=== PATIENT | female | born 1960 | race Caucasian/White ===

== ENCOUNTER 2017-07-28 10:29 | Emergency (ER) | payer OTHER ==
[2017-07-28 15:54] LABS: ADD MAN DIFF? NO
[2017-07-28 15:59] LABS: WHITE BLOOD COUNT 6.7 10^3/ul (4.8-10.8)
[2017-07-28 15:59] LABS: BASOPHIL # 0.1 10^3/ul (0.0-0.1); BASOPHILS % 0.9 % (0.0-2.0); EOSINOPHILS # 0.2 10^3/ul (0.0-0.5); EOSINOPHILS % 2.2 % (0.0-7.0); HEMATOCRIT 28.6 % (37.0-47.0); HEMOGLOBIN 9.5 g/dl (12.0-16.0); LYMPHOCYTES # 2.2 10^3/ul (0.8-2.9); LYMPHOCYTES % 33.1 % (15.0-51.0); MEAN CORPUSCULAR HEMOGLOBIN 31.4 pg (29.0-33.0); MEAN CORPUSCULAR HGB CONC 33.2 g/dl (32.0-37.0); MEAN CORPUSCULAR VOLUME 94.4 fl (82.0-101.0); MEAN PLATELET VOLUME 9.3 fl (7.4-10.4); MONOCYTE # 0.5 10^3/ul (0.3-0.9); MONOCYTES % 7.6 % (0.0-11.0); NEUTROPHIL # 3.7 10^3/ul (1.6-7.5); NEUTROPHILS % 55.9 % (39.0-77.0); PLATELET COUNT 178 10^3/UL (140-415); RED BLOOD COUNT 3.03 10^6/ul (4.20-5.40); RED CELL DISTRIBUTION WIDTH 18.1 % (11.5-14.5)
[2017-07-28 16:12] LABS: INR 1.57; PROTIME 19.1 Sec (11.9-14.9); PT RATIO 1.5
[2017-07-28 16:14] LABS: ALANINE AMINOTRANSFERASE 30 IU/L (13-69); ALBUMIN 3.6 g/dl (3.3-4.9); ALBUMIN/GLOBULIN RATIO 0.64; ALKALINE PHOSPHATASE 99 IU/L (42-121); ANION GAP 13 (8-16); ASPARTATE AMINO TRANSFERASE 64 IU/L (15-46); BILIRUBIN,TOTAL 2.1 mg/dl (0.2-1.3); BLOOD UREA NITROGEN 4 mg/dl (7-20); CALCIUM 9.3 mg/dl (8.4-10.2); CARBON DIOXIDE 25 mmol/L (21-31); CHLORIDE 100 mmol/L (97-110); CREATININE 0.65 mg/dl (0.44-1.00); GLUCOSE 94 mg/dl (70-220); POTASSIUM 3.3 mmol/L (3.5-5.1); SODIUM 135 mmol/L (135-144); TOTAL PROTEIN 9.2 g/dl (6.1-8.1)
== END 2017-07-28 16:49 | disposition home or self-care (01) ==
LOC: E/R 10:29
DX: D64.9 Anemia, unspecified (principal); F17.210 Nicotine dependence, cigarettes, uncomplicated; R40.2252 Coma scale, best verbal response, oriented, at arrival to emergency department; R40.2142 Coma scale, eyes open, spontaneous, at arrival to emergency department; R40.2362 Coma scale, best motor response, obeys commands, at arrival to emergency department; R07.9 Chest pain, unspecified
CPT/HCPCS: 80053; 85025; 85610; 85730; 86850; 86900; 86901; 99283

== ENCOUNTER 2017-11-19 02:38 | Inpatient (IN) | payer OTHER ==
[2017-11-19] MEDS: LIDOCAINE/MYLANTA 40 ML BTL PO (03:30)
[2017-11-19] MEDS: SOD CHLORIDE 0.9% 1,000 ML IV ×2 (03:31→07:16)
[2017-11-19] MEDS: ONDANSETRON 4 MG INJ IV ×2 (03:31→19:49)
[2017-11-19 03:33] LABS: ADD MAN DIFF? NO; BASOPHIL # 0.1 10^3/ul (0.0-0.1); BASOPHILS % 0.7 % (0.0-2.0); EOSINOPHILS % 0.1 % (0.0-7.0); HEMATOCRIT 35.5 % (37.0-47.0); HEMOGLOBIN 12.3 g/dl (12.0-16.0); LYMPHOCYTES # 0.7 10^3/ul (0.8-2.9); MEAN CORPUSCULAR HEMOGLOBIN 34.3 pg (29.0-33.0); MEAN CORPUSCULAR HGB CONC 34.6 g/dl (32.0-37.0); MEAN CORPUSCULAR VOLUME 98.9 fl (82.0-101.0); MEAN PLATELET VOLUME 8.8 fl (7.4-10.4); MONOCYTE # 0.9 10^3/ul (0.3-0.9); NEUTROPHIL # 7.9 10^3/ul (1.6-7.5); NEUTROPHILS % 82.5 % (39.0-77.0); PLATELET COUNT 122 10^3/UL (140-415); RED BLOOD COUNT 3.59 10^6/ul (4.20-5.40); RED CELL DISTRIBUTION WIDTH 15.2 % (11.5-14.5)
[2017-11-19 03:33] LABS: WHITE BLOOD COUNT 9.6 10^3/ul (4.8-10.8)
[2017-11-19] MEDS: KETOROLAC 30 MG INJ IV (03:51)
[2017-11-19 03:59] LABS: ALANINE AMINOTRANSFERASE 26 IU/L (13-69); ALBUMIN 4.2 g/dl (3.3-4.9); ALBUMIN/GLOBULIN RATIO 0.85; ALKALINE PHOSPHATASE 138 IU/L (42-121); ANION GAP 26 (8-16); ASPARTATE AMINO TRANSFERASE 101 IU/L (15-46); BILIRUBIN,INDIRECT 2.1 mg/dl (0-1.1); BILIRUBIN,TOTAL 3.2 mg/dl (0.2-1.3); BLOOD UREA NITROGEN 6 mg/dl (7-20); CALCIUM 9.5 mg/dl (8.4-10.2); CARBON DIOXIDE 18 mmol/L (21-31); CHLORIDE 95 mmol/L (97-110); CREATININE 0.69 mg/dl (0.44-1.00); GLUCOSE 200 mg/dl (70-220); LIPASE 150 U/L (23-300); POTASSIUM 3.1 mmol/L (3.5-5.1); SODIUM 136 mmol/L (135-144); TOTAL PROTEIN 9.1 g/dl (6.1-8.1)
[2017-11-19 04:11] LABS: ADD UMIC NO; TROPONIN-I < 0.012 ng/ml (0.00-0.12); UR ASCORBIC ACID NEGATIVE (NEGATIVE); UR BILIRUBIN (Dip) NEGATIVE (NEGATIVE); UR BLOOD (Dip) NEGATIVE (NEGATIVE); UR CLARITY CLEAR (CLEAR); UR COLOR YELLOW (YELLOW); UR GLUCOSE (Dip) NEGATIVE (NEGATIVE); UR KETONES (Dip) TRACE mg/dL (NEGATIVE); UR LEUKOCYTE ESTERASE (Dip) NEGATIVE Leu/ul (NEGATIVE); UR NITRITE (Dip) NEGATIVE (NEGATIVE); UR SPECIFIC GRAVITY (Dip) 1.011 (1.003-1.030); UR TOTAL PROTEIN (Dip) NEGATIVE (NEGATIVE); UR UROBILINOGEN (Dip) 2+ mg/dL (NEGATIVE)
[2017-11-19] MEDS: POTASSIUM CHLORIDE (SR) 20 MEQ TAB PO (04:50)
[2017-11-19] MEDS: CEFTRIAXONE 1 GM/50 ML (PMX) 50 ML IVPB (07:16)
[2017-11-19] MEDS: metroNIDAZOLE 500 MG/NS (PMX) 100 ML IVPB (07:17)
[2017-11-19] MEDS ORDERED: ALBUTEROL/IPRATROPIUM (NEB) 3 ML AMP HHN (08:00)
[2017-11-19] MEDS ORDERED: NACL 0.9% 3 ML SYG IV (08:00)
[2017-11-19] MEDS: DEXTROSE 5%-0.45% NACL 1,000 ML IV ×2 (14:10→22:48)
[2017-11-19] MEDS: morphine 4 MG/ML VIAL IV (21:31)
[2017-11-20] MEDS: DEXTROSE 5%-0.45% NACL 1,000 ML IV ×2 (06:00→12:15)
[2017-11-20 06:04] LABS: ADD MAN DIFF? NO
[2017-11-20] MEDS: ONDANSETRON 4 MG INJ IV ×3 (06:08→20:59)
[2017-11-20] MEDS: morphine 4 MG/ML VIAL IV ×3 (06:08→20:59)
[2017-11-20 06:10] LABS: WHITE BLOOD COUNT 6.6 10^3/ul (4.8-10.8)
[2017-11-20 06:10] LABS: BASOPHIL # 0.1 10^3/ul (0.0-0.1); BASOPHILS % 1.1 % (0.0-2.0); EOSINOPHILS # 0.2 10^3/ul (0.0-0.5); EOSINOPHILS % 3.2 % (0.0-7.0); HEMATOCRIT 31.6 % (37.0-47.0); HEMOGLOBIN 10.5 g/dl (12.0-16.0); LYMPHOCYTES % 14.4 % (15.0-51.0); MEAN CORPUSCULAR HEMOGLOBIN 34.3 pg (29.0-33.0); MEAN CORPUSCULAR HGB CONC 33.2 g/dl (32.0-37.0); MEAN CORPUSCULAR VOLUME 103.3 fl (82.0-101.0); MEAN PLATELET VOLUME 9.7 fl (7.4-10.4); MONOCYTE # 0.6 10^3/ul (0.3-0.9); MONOCYTES % 9.4 % (0.0-11.0); NEUTROPHIL # 4.7 10^3/ul (1.6-7.5); NEUTROPHILS % 71.6 % (39.0-77.0); PLATELET COUNT 101 10^3/UL (140-415); RED BLOOD COUNT 3.06 10^6/ul (4.20-5.40); RED CELL DISTRIBUTION WIDTH 15.8 % (11.5-14.5)
[2017-11-20 06:22] LABS: PROTIME 20.3 Sec (11.9-14.9); PT RATIO 1.6
[2017-11-20] MEDS: MONTELUKAST 10 MG TAB PO ×2 (06:31→20:59)
[2017-11-20] MEDS: PANTOPRAZOLE (EC) 40 MG TAB PO (06:31)
[2017-11-20] MEDS: POTASSIUM CHLORIDE (SR) 20 MEQ TAB PO (06:31)
[2017-11-20] MEDS: PHYTONADIONE 10 MG/ML INJ IM (06:32)
[2017-11-20 07:03] LABS: ALANINE AMINOTRANSFERASE 33 IU/L (13-69); ALBUMIN 3.3 g/dl (3.3-4.9); ALBUMIN/GLOBULIN RATIO 0.73; ALKALINE PHOSPHATASE 116 IU/L (42-121); ANION GAP 12 (8-16); ASPARTATE AMINO TRANSFERASE 125 IU/L (15-46); BILIRUBIN,INDIRECT 3.6 mg/dl (0-1.1); BILIRUBIN,TOTAL 7.4 mg/dl (0.2-1.3); BLOOD UREA NITROGEN 8 mg/dl (7-20); CARBON DIOXIDE 29 mmol/L (21-31); CHLORIDE 99 mmol/L (97-110); GLUCOSE 107 mg/dl (70-220); POTASSIUM 4.4 mmol/L (3.5-5.1); SODIUM 136 mmol/L (135-144); TOTAL PROTEIN 7.8 g/dl (6.1-8.1)
[2017-11-20] MEDS: ACCU-CHEK XX ×6 (07:20→21:00)
[2017-11-20] MEDS: PHYTONADIONE 10 MG in DEXTROSE 5% 50 ML IVPB (08:35)
[2017-11-20] MEDS: LEVOTHYROXINE 50 MCG TAB PO (08:35)
[2017-11-20] MEDS: CYANOCOBALAMIN 1000 MCG INJ IM (08:36)
[2017-11-20] MEDS: ESCITALOPRAM 10 MG TAB PO (08:36)
[2017-11-20] MEDS: THIAMINE 200 MG INJ IM (08:36)
[2017-11-20] MEDS: LEVETIRACETAM 250 MG TAB PO ×2 (08:36→20:52)
[2017-11-20] MEDS: THIAMINE 100 MG TAB PO (08:37)
[2017-11-20] MEDS: SALMETEROL/FLUTICASONE 250/50 INHA INH ×2 (08:37→20:51)
[2017-11-20 09:01] LABS: HEPATITIS B SURFACE ANTIGEN NEGATIVE (NEGATIVE)
[2017-11-20 09:17] LABS: HEPATITIS C VIRAL ANTIBODY NEGATIVE (NEGATIVE)
[2017-11-20 09:18] LABS: HEPATITIS B SURFACE ANTIBODY POSITIVE (NEGATIVE)
[2017-11-20] MEDS: RANITIDINE 150 MG TAB PO (20:58)
[2017-11-20] MEDS ORDERED: MONTELUKAST 10 MG TAB PO (21:00)
[2017-11-21] MEDS: DEXTROSE 5%-0.45% NACL 1,000 ML IV ×3 (01:58→22:00)
[2017-11-21 05:17] LABS: ADD MAN DIFF? NO
[2017-11-21 05:29] LABS: WHITE BLOOD COUNT 10.3 10^3/ul (4.8-10.8)
[2017-11-21 05:29] LABS: BASOPHIL # 0.1 10^3/ul (0.0-0.1); BASOPHILS % 0.8 % (0.0-2.0); EOSINOPHILS # 0.3 10^3/ul (0.0-0.5); HEMATOCRIT 29.8 % (37.0-47.0); HEMOGLOBIN 9.7 g/dl (12.0-16.0); LYMPHOCYTES # 1.4 10^3/ul (0.8-2.9); LYMPHOCYTES % 13.7 % (15.0-51.0); MEAN CORPUSCULAR HEMOGLOBIN 33.8 pg (29.0-33.0); MEAN CORPUSCULAR HGB CONC 32.6 g/dl (32.0-37.0); MEAN CORPUSCULAR VOLUME 103.8 fl (82.0-101.0); MEAN PLATELET VOLUME 9.9 fl (7.4-10.4); MONOCYTE # 0.9 10^3/ul (0.3-0.9); NEUTROPHIL # 7.5 10^3/ul (1.6-7.5); PLATELET COUNT 103 10^3/UL (140-415); RED BLOOD COUNT 2.87 10^6/ul (4.20-5.40); RED CELL DISTRIBUTION WIDTH 15.3 % (11.5-14.5)
[2017-11-21] MEDS: PANTOPRAZOLE (EC) 40 MG TAB PO (05:43)
[2017-11-21] MEDS: LEVOTHYROXINE 50 MCG TAB PO (05:44)
[2017-11-21 05:48] LABS: INR 1.99; PROTIME 23.1 Sec (11.9-14.9); PT RATIO 1.8
[2017-11-21 05:49] LABS: PARTIAL THROMBOPLASTIN TIME 46.8 Sec (25.0-35.0)
[2017-11-21 06:07] LABS: ALANINE AMINOTRANSFERASE 33 IU/L (13-69); ALBUMIN/GLOBULIN RATIO 0.68; ALKALINE PHOSPHATASE 109 IU/L (42-121); ANION GAP 12 (8-16); ASPARTATE AMINO TRANSFERASE 90 IU/L (15-46); BILIRUBIN,INDIRECT 3.7 mg/dl (0-1.1); BILIRUBIN,TOTAL 9.5 mg/dl (0.2-1.3); BLOOD UREA NITROGEN 8 mg/dl (7-20); CALCIUM 8.6 mg/dl (8.4-10.2); CARBON DIOXIDE 25 mmol/L (21-31); CHLORIDE 99 mmol/L (97-110); CREATININE 0.73 mg/dl (0.44-1.00); GLUCOSE 111 mg/dl (70-220); POTASSIUM 4.2 mmol/L (3.5-5.1); SODIUM 132 mmol/L (135-144); TOTAL PROTEIN 7.4 g/dl (6.1-8.1)
[2017-11-21] MEDS: morphine 4 MG/ML VIAL IV ×3 (06:51→18:22)
[2017-11-21] MEDS ORDERED: HEPATITIS A VACC 25 UNITS/0.5ML INJ IM* (08:00)
[2017-11-21] MEDS: ONDANSETRON 4 MG INJ IV ×2 (09:48→22:07)
[2017-11-21] MEDS: LEVETIRACETAM 250 MG TAB PO ×2 (10:19→20:54)
[2017-11-21] MEDS: THIAMINE 100 MG TAB PO (10:19)
[2017-11-21] MEDS: ESCITALOPRAM 10 MG TAB PO (10:19)
[2017-11-21] MEDS: PHYTONADIONE 10 MG/ML INJ SC (10:20)
[2017-11-21] MEDS: SALMETEROL/FLUTICASONE 250/50 INHA INH ×2 (10:21→20:54)
[2017-11-21] MEDS: PIPER-TAZO 3.375 GM IV (PMX) 100 ML IVPB ×2 (14:24→22:08)
[2017-11-21] MEDS: RANITIDINE 150 MG TAB PO (20:54)
[2017-11-21] MEDS: MONTELUKAST 10 MG TAB PO (20:54)
[2017-11-22] MEDS: DEXTROSE 5%-0.45% NACL 1,000 ML IV ×2 (01:39→11:48)
[2017-11-22] MEDS: ONDANSETRON 4 MG INJ IV ×3 (04:41→22:33)
[2017-11-22 05:35] LABS: ADD MAN DIFF? NO
[2017-11-22 05:40] LABS: BASOPHIL # 0.1 10^3/ul (0.0-0.1); BASOPHILS % 0.8 % (0.0-2.0); EOSINOPHILS # 0.3 10^3/ul (0.0-0.5); LYMPHOCYTES # 1.2 10^3/ul (0.8-2.9); LYMPHOCYTES % 13.3 % (15.0-51.0); MEAN CORPUSCULAR HEMOGLOBIN 34.2 pg (29.0-33.0); MEAN CORPUSCULAR HGB CONC 33.3 g/dl (32.0-37.0); MEAN CORPUSCULAR VOLUME 102.7 fl (82.0-101.0); MEAN PLATELET VOLUME 9.7 fl (7.4-10.4); MONOCYTE # 0.9 10^3/ul (0.3-0.9); MONOCYTES % 9.3 % (0.0-11.0); NEUTROPHIL # 6.8 10^3/ul (1.6-7.5); NEUTROPHILS % 73.1 % (39.0-77.0); PLATELET COUNT 106 10^3/UL (140-415); RED BLOOD COUNT 2.92 10^6/ul (4.20-5.40); RED CELL DISTRIBUTION WIDTH 15.1 % (11.5-14.5)
[2017-11-22 05:40] LABS: WHITE BLOOD COUNT 9.2 10^3/ul (4.8-10.8)
[2017-11-22 05:54] LABS: INR 2.03; PROTIME 23.4 Sec (11.9-14.9); PT RATIO 1.8
[2017-11-22 05:55] LABS: PARTIAL THROMBOPLASTIN TIME 47.9 Sec (25.0-35.0)
[2017-11-22 05:58] LABS: ALANINE AMINOTRANSFERASE 23 IU/L (13-69); ALBUMIN 3.1 g/dl (3.3-4.9); ALBUMIN/GLOBULIN RATIO 0.72; ALKALINE PHOSPHATASE 109 IU/L (42-121); ANION GAP 13 (8-16); ASPARTATE AMINO TRANSFERASE 68 IU/L (15-46); BILIRUBIN,INDIRECT 3.8 mg/dl (0-1.1); BILIRUBIN,TOTAL 12.6 mg/dl (0.2-1.3); BLOOD UREA NITROGEN 6 mg/dl (7-20); CALCIUM 8.7 mg/dl (8.4-10.2); CARBON DIOXIDE 24 mmol/L (21-31); CHLORIDE 98 mmol/L (97-110); CREATININE 0.72 mg/dl (0.44-1.00); GLUCOSE 130 mg/dl (70-220); POTASSIUM 3.8 mmol/L (3.5-5.1); SODIUM 131 mmol/L (135-144); TOTAL PROTEIN 7.4 g/dl (6.1-8.1)
[2017-11-22] MEDS: PIPER-TAZO 3.375 GM IV (PMX) 100 ML IVPB (06:06)
[2017-11-22] MEDS: PANTOPRAZOLE (EC) 40 MG TAB PO (06:06)
[2017-11-22] MEDS: LEVOTHYROXINE 50 MCG TAB PO (06:06)
[2017-11-22] MEDS: SALMETEROL/FLUTICASONE 250/50 INHA INH ×2 (08:11→20:55)
[2017-11-22] MEDS: LEVETIRACETAM 250 MG TAB PO ×2 (08:11→20:54)
[2017-11-22] MEDS: THIAMINE 100 MG TAB PO (08:12)
[2017-11-22] MEDS: ESCITALOPRAM 10 MG TAB PO (08:12)
[2017-11-22] MEDS: morphine 4 MG/ML VIAL IV ×3 (08:20→20:56)
[2017-11-22] MEDS ORDERED: predniSOLONE (3 MG/ML) CUP PO (13:30)
[2017-11-22] MEDS ORDERED: predniSOLONE (3 MG/ML PO SYG) PO (15:00)
[2017-11-22] MEDS: predniSOLONE (3 MG/ML) CUP PO (16:13)
[2017-11-22] MEDS: RANITIDINE 150 MG TAB PO (20:54)
[2017-11-22] MEDS: MONTELUKAST 10 MG TAB PO (20:54)
[2017-11-22] MEDS: PENTOXIFYLLINE (SR) 400 MG TAB PO (20:54)
[2017-11-22] MEDS: PHYTONADIONE 10 MG/ML INJ IM (20:56)
[2017-11-23] MEDS ORDERED: VANCOMYCIN IV PER PHARMACY XX (00:30)
[2017-11-23] MEDS: VANCOMYCIN 1.25 GM in SOD CHLORIDE 0.9% 250 ML IVPB (03:12)
[2017-11-23] MEDS: morphine 4 MG/ML VIAL IV ×5 (03:33→21:09)
[2017-11-23 05:47] LABS: ADD MAN DIFF? NO
[2017-11-23 05:48] LABS: WHITE BLOOD COUNT 5.7 10^3/ul (4.8-10.8)
[2017-11-23 05:48] LABS: ABNORMAL IP MESSAGE 1; BASOPHILS % 0.3 % (0.0-2.0); EOSINOPHILS % 0.2 % (0.0-7.0); HEMOGLOBIN 9.5 g/dl (12.0-16.0); LYMPHOCYTES # 0.5 10^3/ul (0.8-2.9); LYMPHOCYTES % 8.9 % (15.0-51.0); MEAN CORPUSCULAR HEMOGLOBIN 34.4 pg (29.0-33.0); MEAN CORPUSCULAR HGB CONC 33.9 g/dl (32.0-37.0); MEAN CORPUSCULAR VOLUME 101.4 fl (82.0-101.0); MEAN PLATELET VOLUME 10.1 fl (7.4-10.4); MONOCYTE # 0.4 10^3/ul (0.3-0.9); MONOCYTES % 6.4 % (0.0-11.0); NEUTROPHIL # 4.8 10^3/ul (1.6-7.5); NEUTROPHILS % 83.7 % (39.0-77.0); PLATELET COUNT 102 10^3/UL (140-415); RED BLOOD COUNT 2.76 10^6/ul (4.20-5.40); RED CELL DISTRIBUTION WIDTH 15.2 % (11.5-14.5)
[2017-11-23 05:54] LABS: POSITIVE DIFF @See below
[2017-11-23] MEDS: LEVOTHYROXINE 50 MCG TAB PO (06:07)
[2017-11-23] MEDS: PANTOPRAZOLE (EC) 40 MG TAB PO (06:07)
[2017-11-23 06:13] LABS: INR 2.14; PROTIME 24.4 Sec (11.9-14.9); PT RATIO 1.9
[2017-11-23 06:18] LABS: ALANINE AMINOTRANSFERASE 23 IU/L (13-69); ALBUMIN 2.9 g/dl (3.3-4.9); ALBUMIN/GLOBULIN RATIO 0.65; ALKALINE PHOSPHATASE 107 IU/L (42-121); ANION GAP 15 (8-16); ASPARTATE AMINO TRANSFERASE 49 IU/L (15-46); BILIRUBIN,INDIRECT 3.1 mg/dl (0-1.1); BILIRUBIN,TOTAL 11.3 mg/dl (0.2-1.3); BLOOD UREA NITROGEN 7 mg/dl (7-20); CALCIUM 8.5 mg/dl (8.4-10.2); CARBON DIOXIDE 23 mmol/L (21-31); CHLORIDE 97 mmol/L (97-110); CREATININE 0.57 mg/dl (0.44-1.00); GLUCOSE 149 mg/dl (70-220); POTASSIUM 3.9 mmol/L (3.5-5.1); SODIUM 131 mmol/L (135-144); TOTAL PROTEIN 7.3 g/dl (6.1-8.1)
[2017-11-23] MEDS: ONDANSETRON 4 MG INJ IV ×3 (07:30→21:09)
[2017-11-23] MEDS: LEVETIRACETAM 250 MG TAB PO ×2 (08:03→21:07)
[2017-11-23] MEDS: PENTOXIFYLLINE (SR) 400 MG TAB PO ×2 (08:03→12:39)
[2017-11-23] MEDS: ESCITALOPRAM 10 MG TAB PO (08:03)
[2017-11-23] MEDS: THIAMINE 100 MG TAB PO (08:03)
[2017-11-23] MEDS: SALMETEROL/FLUTICASONE 250/50 INHA INH ×2 (08:03→21:07)
[2017-11-23] MEDS: predniSOLONE (3 MG/ML) CUP PO (08:04)
[2017-11-23] MEDS: HEPATITIS A VACC 25 UNITS/0.5ML INJ IM* (12:04)
[2017-11-23] MEDS ORDERED: VANCOMYCIN 750 MG in DEXTROSE 5% 150 ML IVPB (15:00)
[2017-11-23] MEDS: RANITIDINE 150 MG TAB PO (21:07)
[2017-11-23] MEDS: MONTELUKAST 10 MG TAB PO (21:07)
[2017-11-24] MEDS: morphine 4 MG/ML VIAL IV ×3 (01:46→11:27)
[2017-11-24 05:06] LABS: ADD MAN DIFF? NO
[2017-11-24 05:16] LABS: WHITE BLOOD COUNT 7.8 10^3/ul (4.8-10.8)
[2017-11-24 05:16] LABS: BASOPHILS % 0.1 % (0.0-2.0); EOSINOPHILS % 0.4 % (0.0-7.0); HEMATOCRIT 26.3 % (37.0-47.0); HEMOGLOBIN 9.1 g/dl (12.0-16.0); LYMPHOCYTES # 1.1 10^3/ul (0.8-2.9); LYMPHOCYTES % 14.7 % (15.0-51.0); MEAN CORPUSCULAR HEMOGLOBIN 34.5 pg (29.0-33.0); MEAN CORPUSCULAR HGB CONC 34.6 g/dl (32.0-37.0); MEAN CORPUSCULAR VOLUME 99.6 fl (82.0-101.0); MEAN PLATELET VOLUME 10.2 fl (7.4-10.4); MONOCYTE # 0.7 10^3/ul (0.3-0.9); MONOCYTES % 9.5 % (0.0-11.0); NEUTROPHIL # 5.8 10^3/ul (1.6-7.5); NEUTROPHILS % 74.7 % (39.0-77.0); PLATELET COUNT 123 10^3/UL (140-415); RED BLOOD COUNT 2.64 10^6/ul (4.20-5.40); RED CELL DISTRIBUTION WIDTH 15.1 % (11.5-14.5)
[2017-11-24 05:30] LABS: ALANINE AMINOTRANSFERASE 29 IU/L (13-69); ALBUMIN 2.9 g/dl (3.3-4.9); ALBUMIN/GLOBULIN RATIO 0.67; ALKALINE PHOSPHATASE 108 IU/L (42-121); ANION GAP 10 (8-16); ASPARTATE AMINO TRANSFERASE 51 IU/L (15-46); BILIRUBIN,INDIRECT 2.8 mg/dl (0-1.1); BILIRUBIN,TOTAL 8.1 mg/dl (0.2-1.3); BLOOD UREA NITROGEN 13 mg/dl (7-20); CALCIUM 9.2 mg/dl (8.4-10.2); CARBON DIOXIDE 28 mmol/L (21-31); CHLORIDE 96 mmol/L (97-110); CREATININE 0.71 mg/dl (0.44-1.00); GLUCOSE 112 mg/dl (70-220); POTASSIUM 4.2 mmol/L (3.5-5.1); SODIUM 130 mmol/L (135-144); TOTAL PROTEIN 7.2 g/dl (6.1-8.1)
[2017-11-24 05:35] LABS: INR 1.98; PT RATIO 1.8
[2017-11-24] MEDS: PANTOPRAZOLE (EC) 40 MG TAB PO (05:47)
[2017-11-24] MEDS: LEVOTHYROXINE 50 MCG TAB PO (05:47)
[2017-11-24] MEDS: SALMETEROL/FLUTICASONE 250/50 INHA INH ×2 (08:41→21:01)
[2017-11-24] MEDS: ESCITALOPRAM 10 MG TAB PO (08:42)
[2017-11-24] MEDS: FUROSEMIDE 20 MG TAB PO (08:42)
[2017-11-24] MEDS: LEVETIRACETAM 250 MG TAB PO ×2 (08:43→21:01)
[2017-11-24] MEDS: THIAMINE 100 MG TAB PO (08:43)
[2017-11-24] MEDS: predniSOLONE (3 MG/ML) CUP PO (08:44)
[2017-11-24 11:11] LABS: MITOCHONDRIAL TB NEGATIVE (NEGATIVE); SMOOTH MUSCLE AB SCREEN NEGATIVE (NEGATIVE)
[2017-11-24] MEDS: ONDANSETRON 4 MG INJ IV ×2 (11:27→21:03)
[2017-11-24 14:11] LABS: ANA SCREEN NEGATIVE (NEGATIVE)
[2017-11-24] MEDS: morphine LIQ (10 MG/5 ML) CUP PO ×2 (16:03→21:36)
[2017-11-24] MEDS: MONTELUKAST 10 MG TAB PO (21:01)
[2017-11-24] MEDS: RANITIDINE 150 MG TAB PO (21:01)
[2017-11-25] MEDS: morphine LIQ (10 MG/5 ML) CUP PO ×3 (02:13→14:02)
[2017-11-25] MEDS: ONDANSETRON 4 MG INJ IV ×2 (04:04→14:02)
[2017-11-25 05:55] LABS: ADD MAN DIFF? NO
[2017-11-25 06:08] LABS: WHITE BLOOD COUNT 9.4 10^3/ul (4.8-10.8)
[2017-11-25 06:08] LABS: BASOPHILS % 0.2 % (0.0-2.0); EOSINOPHILS # 0.1 10^3/ul (0.0-0.5); EOSINOPHILS % 0.5 % (0.0-7.0); HEMATOCRIT 30.6 % (37.0-47.0); HEMOGLOBIN 10.3 g/dl (12.0-16.0); LYMPHOCYTES # 1.7 10^3/ul (0.8-2.9); LYMPHOCYTES % 17.5 % (15.0-51.0); MEAN CORPUSCULAR HGB CONC 33.7 g/dl (32.0-37.0); MEAN PLATELET VOLUME 10.3 fl (7.4-10.4); MONOCYTE # 1.2 10^3/ul (0.3-0.9); MONOCYTES % 12.7 % (0.0-11.0); NEUTROPHIL # 6.4 10^3/ul (1.6-7.5); NEUTROPHILS % 67.7 % (39.0-77.0); PLATELET COUNT 152 10^3/UL (140-415); RED BLOOD COUNT 3.03 10^6/ul (4.20-5.40); RED CELL DISTRIBUTION WIDTH 15.4 % (11.5-14.5)
[2017-11-25 06:21] LABS: INR 1.75; PROTIME 20.8 Sec (11.9-14.9); PT RATIO 1.6
[2017-11-25 06:32] LABS: ALANINE AMINOTRANSFERASE 34 IU/L (13-69); ALBUMIN 3.4 g/dl (3.3-4.9); ALBUMIN/GLOBULIN RATIO 0.72; ALKALINE PHOSPHATASE 132 IU/L (42-121); ANION GAP 15 (8-16); ASPARTATE AMINO TRANSFERASE 63 IU/L (15-46); BILIRUBIN,INDIRECT 2.6 mg/dl (0-1.1); BILIRUBIN,TOTAL 5.6 mg/dl (0.2-1.3); BLOOD UREA NITROGEN 14 mg/dl (7-20); CALCIUM 9.1 mg/dl (8.4-10.2); CARBON DIOXIDE 27 mmol/L (21-31); CHLORIDE 95 mmol/L (97-110); CREATININE 0.69 mg/dl (0.44-1.00); GLUCOSE 95 mg/dl (70-220); POTASSIUM 3.8 mmol/L (3.5-5.1); SODIUM 133 mmol/L (135-144); TOTAL PROTEIN 8.1 g/dl (6.1-8.1)
[2017-11-25] MEDS: PANTOPRAZOLE (EC) 40 MG TAB PO (07:44)
[2017-11-25] MEDS: LEVOTHYROXINE 50 MCG TAB PO (07:44)
[2017-11-25] MEDS: ESCITALOPRAM 10 MG TAB PO (08:57)
[2017-11-25] MEDS: FUROSEMIDE 20 MG TAB PO (08:58)
[2017-11-25] MEDS: THIAMINE 100 MG TAB PO (08:58)
[2017-11-25] MEDS: SALMETEROL/FLUTICASONE 250/50 INHA INH (08:58)
[2017-11-25] MEDS: LEVETIRACETAM 250 MG TAB PO (08:58)
[2017-11-25] MEDS: predniSOLONE (3 MG/ML) CUP PO (08:59)
[2017-11-25] MEDS: PHYTONADIONE 10 MG/ML INJ IM (12:32)
== END 2017-11-25 15:35 | disposition home or self-care (01) | DRG 445 ==
LOC: E/R 02:38 → MS1 08:41
DX: K80.20 Calculus of gallbladder without cholecystitis without obstruction (principal); I85.10 Secondary esophageal varices without bleeding; D69.6 Thrombocytopenia, unspecified; K80.10 Calculus of gallbladder with chronic cholecystitis without obstruction; K70.30 Alcoholic cirrhosis of liver without ascites; K21.9 Gastro-esophageal reflux disease without esophagitis; K70.31 Alcoholic cirrhosis of liver with ascites; E87.6 Hypokalemia; E03.9 Hypothyroidism, unspecified; F10.10 Alcohol abuse, uncomplicated; F32.9 Major depressive disorder, single episode, unspecified; J45.909 Unspecified asthma, uncomplicated; M06.9 Rheumatoid arthritis, unspecified; Q63.1 Lobulated, fused and horseshoe kidney; Z86.011 Personal history of benign neoplasm of the brain
CPT/HCPCS: 36415; 74181; 76705; 78226; 80053; 81003; 81025; 82962; 83690; 84443; 84484; 85025; 85610; 85730; 86038; 86255; 86706; 86708; 86803; 86850; 86900; 86901; 87040; 87340; 90634; 96374; 96375; 97161; 99285-25